=== PATIENT | female | born 1935 | race Caucasian/White ===

== ENCOUNTER 2018-08-29 09:55 | Outpatient (CLI) ==
--- NOTE | 2018-08-29 11:56 | DI ---
EXAM: LEFT KNEE. HISTORY: Knee pain FINDINGS: Left knee two-view. 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 Complete loss articul ar cartilage width is noted. Mild medial subluxation of the distal femoral condyles upon the tibial plateau. Subchondral sclerosis and bony spurring. Probable trace joint effusion. No fracture. IMPRESSION: 1. Severe tricompartment osteoarthritis.
--- NOTE | 2018-08-29 11:58 | DI ---
EXAM: RIGHT KNEE. HISTORY: Knee pain. FINDINGS: Right knee two-view. There is severe tricompartment osteoarthritis with complete loss of articular cartilage width, subchondral sclerosis and mild medial subluxation of the distal femoral co ndyles upon the tibial plateau. No definite joint effusion. No acute fracture is seen IMPRESSION: 1. Severe tricompartment osteoarthritis.
--- NOTE | 2018-08-29 14:27 | DI ---
EXAM: Lumbar spine three view HISTORY: Chronic back pain COMPARISON: None TECHNIQUE: Three views lumbar spine were performed FINDINGS: Sclerosis about the left greater than right. Sacroiliac joints. Vertebral bodies normal height. No fracture. Multilevel marginal osteophyte formation. Varying degrees of multilevel inter vertebral disc space narrowing with multilevel severe intervertebral disc space narrowing. Multileve l facet arthrosis, greatest in the lower spine. Question pars defects L5. 6 mm anterolisthesis of L 4 on L5 and 6 mm anterolisthesis of L5 on S1. Atherosclerotic vascular calcification. IMPRESSION: 1. 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 2. Question pars defects L5. 3. 6 mm anterolisthesis of L4 on L5 and 6 mm anterolisthesis of L5 on S1.
== END 2018-08-29 09:56 | disposition home or self-care (01) ==
LOC: RAD 09:55
PROVIDERS: ATTEND Physician Assistant
DX: M54.9 Dorsalgia, unspecified (principal); G89.29 Other chronic pain; M25.562 Pain in left knee; M25.561 Pain in right knee